=== PATIENT | female | born 1985 | race Two or more races ===

== ENCOUNTER 2023-05-25 10:35 | Emergency (ER) | payer SELFPAY ==
[~2023-05-25] VITALS: Ht 154.9 cm; Wt 89.0 kg
[2023-05-25 10:45] VITALS: BP 164/83; TEMP 97.9
[2023-05-25 11:54] VITALS: PULSE 80; RESP 18; O2SAT 97
== END 2023-05-25 12:08 | disposition home or self-care (01) ==
LOC: ER 10:35
DX: S63.501A Unspecified sprain of right wrist, initial encounter (principal); X50.1XXA Overexertion from prolonged static or awkward postures, initial encounter; Y93.39 Activity, other involving climbing, rappelling and jumping off; Y92.89 Other specified places as the place of occurrence of the external cause; Y99.8 Other external cause status
CPT/HCPCS: 29125; 73110